=== PATIENT | male | born 1975 | race Caucasian/White ===

== ENCOUNTER 2019-07-10 14:20 | Emergency (ER) | payer OTHER ==
[~2019-07-10] VITALS: Ht 188 cm; Wt 104.3 kg
[2019-07-10] MEDS ORDERED: ONDANSETRON 4 MG/2 ML VIAL IV ONE ×2 (14:45→15:45)
[2019-07-10] MEDS ORDERED: IV NORMAL SALINE 1000 ML BAG IV ONE ×2 (14:45→16:15)
[2019-07-10] MEDS ORDERED: ONDANSETRON 4 MG/2 ML VIAL ONE ×3 (14:55→15:50)
[2019-07-10 14:57] LABS: BASOPHILS % (AUTO) 0.6 % (0.0-2.0); EOSINOPHILS % (AUTO) 0.1 % (0.0-7.0); HEMATOCRIT 50.8 % (36.7-47.1); HEMOGLOBIN 16.8 g/dL (12.5-16.3); LYMPHOCYTES # (AUTO) 1.1 K/uL (20.0-40.0); LYMPHOCYTES % (AUTO) 15.1 % (20.5-51.5); MEAN CORPUSCULAR HEMOGLOBIN 27.1 uug (23.8-33.4); MEAN CORPUSCULAR HGB CONC 33 g/dL (32.5-36.3); MEAN CORPUSCULAR VOLUME 82.1 fL (73.0-96.2); MONOCYTES # (AUTO) 0.4 K/uL (2.0-10.0); NEUTROPHILS # (AUTO) 5.4 K/uL (1.8-8.9); NEUTROPHILS % (AUTO) 78.2 % (38.5-71.5); PLATELET COUNT (AUTO) 141 K/uL (152-348); RED BLOOD CELL COUNT(AUTO) 6.19 MIL/uL (4.06-5.63)
[2019-07-10 15:03] LABS: CREATININE 0.9 mg/dL (0.6-1.3); POTASSIUM 4.1 mmol/L (3.5-5.1)
[2019-07-10 15:08] LABS: BILIRUBIN,DIRECT 0.3 mg/dL (0.0-0.2); BILIRUBIN,TOTAL 0.9 mg/dL (0.2-1.0); TOTAL PROTEIN, SERUM 7.8 g/dL (6.4-8.2)
[2019-07-10] MEDS ORDERED: LORAZEPAM 2 MG/1 ML VIAL ONE (16:12)
[2019-07-10] MEDS ORDERED: LORAZEPAM 2 MG/1 ML VIAL IV ONE ×2 (16:15)
--- NOTE | 2019-07-10 16:27 | NUR ---
Patient discharged to home in stable conditon. Written and verbal after care instructions given. Patient verbalizes understanding of instructions.pt with girl friend pt not driving.
[2019-07-10 16:30] VITALS: BP 131/79
== END 2019-07-10 16:30 | disposition home or self-care (01) ==
LOC: ER 14:20
DX: F10.129 Alcohol abuse with intoxication, unspecified (principal); E86.0 Dehydration; R11.0 Nausea; G89.29 Other chronic pain; R10.33 Periumbilical pain; F17.200 Nicotine dependence, unspecified, uncomplicated; Y90.8 Blood alcohol level of 240 mg/100 ml or more
CPT/HCPCS: 36415; 80048; 80076; 83690; 84484; 85025; 93005; 96374; 96375; 96376; 99284; G0480; J2060; J2405 ×3; 70030-TC; A4663; J7030